=== PATIENT | male | born 1990 | race Two or more races ===

== ENCOUNTER 2020-12-13 14:37 | Emergency (ER) | payer MEDICAID ==
[~2020-12-13] VITALS: Ht 185.4 cm; Wt 167.8 kg
[2020-12-13] MEDS ORDERED: cloNIDine HCL 0.1 MG TAB PO ONE (15:00)
[2020-12-13 15:50] VITALS: BP 181/124
[2020-12-13] MEDS ORDERED: PROMETHAZINE HCL 25 MG/ML 1ML IM ONE (16:30)
[2020-12-13] MEDS ORDERED: HYDROmorphone HCL 2 MG/ML VL IM ONE (16:30)
== END 2020-12-13 17:23 | disposition home or self-care (01) ==
LOC: ER 14:45
DX: G89.29 Other chronic pain (principal); M54.5 Low back pain; M54.16 Radiculopathy, lumbar region; I10 Essential (primary) hypertension; E66.01 Morbid (severe) obesity due to excess calories; Z68.42 Body mass index [BMI] 45.0-49.9, adult
CPT/HCPCS: 96372; 99284; J1170; J2550

== ENCOUNTER 2022-11-13 15:21 | Emergency (ER) | payer MEDICAID ==
[~2022-11-13] VITALS: Ht 182.9 cm; Wt 145.0 kg
[2022-11-13 15:32] VITALS: BP 149/100
[2022-11-13] MEDS ORDERED: CLOT1CRE13 TOP (16:46)
[2022-11-13] MEDS ORDERED: AMLO-483 PO (16:46)
[2022-11-13] MEDS ORDERED: FLUC150T38 PO (16:46)
== END 2022-11-13 17:31 | disposition home or self-care (01) ==
LOC: ER 15:21
DX: I10 Essential (primary) hypertension (principal); N48.1 Balanitis

== ENCOUNTER 2023-01-01 14:38 | Emergency (ER) | payer MEDICAID ==
[~2023-01-01] VITALS: Ht 185.4 cm; Wt 136.0 kg
[~2023-01-01 14:38] MED LIST: AMLO1TAB21 PO; CLOT1CRE51 TOP; FLUC150T38 PO
[2023-01-01 14:45] VITALS: BP 161/98
[2023-01-01 15:26] LABS: Urine Bacteria NONE SEEN /hpf (None Seen); Urine Blood Negative /uL (Negative); Urine Specific Gravity 1.039 (1.001-1.035); Urine WBC 3 /hpf (0 - 3)
[2023-01-01] MEDS ORDERED: AZITHROMYCIN 250 MG TAB PO ONE (15:30)
[2023-01-01] MEDS ORDERED: cefTRIAXone SODIUM 250 MG VL IM ONE (15:30)
[2023-01-01] MEDS ORDERED: BACDST PO (17:11)
[2023-01-02 08:06] LABS: RPR Non Reactive (Non Reactive)
== END 2023-01-01 17:25 | disposition home or self-care (01) ==
LOC: ER 14:38
DX: L08.9 Local infection of the skin and subcutaneous tissue, unspecified (principal); I10 Essential (primary) hypertension; Z79.899 Other long term (current) drug therapy
CPT/HCPCS: 74176; 81001; 86592; 87491; 87591; 96372; 99284; J0696

== ENCOUNTER 2023-02-08 06:42 | Emergency (ER) | payer MEDICAID ==
[~2023-02-08] VITALS: Ht 185.4 cm; Wt 131.4 kg
[~2023-02-08 06:42] MED LIST changes: +BACDST PO
[2023-02-08] MEDS ORDERED: IBUP-1456 PO (08:42)
[2023-02-08] MEDS ORDERED: CEPH500C PO (08:42)
[2023-02-08] MEDS ORDERED: BACDST PO (08:42)
[2023-02-08 09:08] VITALS: BP 160/79; PULSE 93; RESP 18; O2SAT 98
== END 2023-02-08 09:10 | disposition home or self-care (01) ==
LOC: ER 06:42
DX: N48.1 Balanitis (principal); L08.9 Local infection of the skin and subcutaneous tissue, unspecified; I10 Essential (primary) hypertension; Z79.1 Long term (current) use of non-steroidal anti-inflammatories (NSAID); Z79.899 Other long term (current) drug therapy